=== PATIENT | male | born 1990 | race Hispanic/Latino ===

== ENCOUNTER 2016-07-25 23:50 | Emergency (ER) | payer MEDICAID, OTHER ==
[2016-07-25 23:58] VITALS: BP 153/81; PULSE 99; RESP 17; TEMP 98; O2SAT 100
[2016-07-26] MEDS ORDERED: DiphenhydrAMINE 50 mg/ml Inj IV STA (00:45)
[2016-07-26] MEDS ORDERED: DiphenhydrAMINE 50 mg/ml Inj ONE (00:48)
--- NOTE | 2016-07-26 00:48 | ED PDOC ---
HPI: General Adult Time Seen by Provider: 07/26/16 00:19 Chief Complaint (Nursing): Dental Pain Chief Complaint (Provider): swollen tongue History Per: Patient, Family (cousin) History/Exam Limitations: no limitations Additional History Per: Patient, Family Additional Complaint(s): 25 y/o male no past medical history presents for eval of pain/swelling/redness to tongue x 2 hours. Patient states pain started after using colgate mouthwash. He notes difficulty swallowing due to swelling. Denies difficulty breathing, rash, chest pain, shortness of breath, palpitations. Past Medical History Reviewed: Historical Data, Nursing Documentation, Vital Signs Vital Signs: Last Vital Signs Temp 98 F 07/25/16 23:54 Pulse 99 H 07/25/16 23:54 Resp 17 07/25/16 23:54 BP 153/81 H 07/25/16 23:54 Pulse Ox 100 07/26/16 01:58 - Medical History PMH: No Chronic Diseases - Surgical History Surgical History: No Surg Hx - Family History Family History: States: Unknown Family Hx - Home Medications Home Medications: Ambulatory Orders Medication Instructions Recorded traMADol [Ultram] 50 mg PO Q6 #10 tab 11/25/15 Naproxen [Naprosyn] 500 mg PO Q12 PRN #20 tablet 07/26/16 Prednisone 50 mg PO DAILY #4 tablet 07/26/16 - Allergies Allergies/Adverse Reactions: Allergies Allergy/AdvReac Type Severity Reaction Status Date / Time No Known Allergies Allergy Verified 11/24/15 22:59 Review of Systems ROS Statement: Except As Marked, All Systems Reviewed And Found Negative ENT: Positive for: Mouth Swelling (tongue) Physical Exam - Reviewed Nursing Documentation Reviewed: Yes Vital Signs Reviewed: Yes - Physical Exam Appears: Positive for: Well, Non-toxic, No Acute Distress Head Exam: Positive for: ATRAUMATIC, NORMAL INSPECTION, NORMOCEPHALIC Skin: Positive for: Normal Color Eye Exam: Positive for: Normal appearance ENT: Positive for: Other (erythema, generalized swelling to tongue. Airway patent. Multiple dental caries, upper gum recession) Cardiovascular/Chest: Positive for: Regular Rate, Rhythm Respiratory: Positive for: Normal Breath Sounds Gastrointestinal/Abdominal: Positive for: Normal Exam Back: Positive for: Normal Inspection Neurologic/Psych: Positive for: Alert, Oriented - ECG O2 Sat by Pulse Oximetry: 100 - Progress ED Course And Treament: IV solumedrol IV pepcid IV benadryl On re-eval, patient still complains of symptoms to tongue; TOradol IM given 3:15 Swelling/redness improved. Patient educated on findings, discharged with rx Prednisone, Naproxen. Advised Benadryl PRN. Follow up PMD 2-3 days. Follow up Dentist for tooth decay. Return to ED for worsening/concerning symptoms. Disposition - Clinical Impression Clinical Impression: Glossitis, Dental caries - Patient ED Disposition Is Patient to be Admitted: No Counseled Patient/Family Regarding: Diagnosis, Need For Followup, Rx Given - Disposition Disposition: Routine/Home Disposition Time: 03:22 Condition: IMPROVED Additional Instructions: Follow up with Dentist ELICEO. Use medication as directed. Use Benadryl (over the counter) every 4-6 hours as directed, as needed. Return to ED for worsening/concerning symptoms. Prescriptions: Naproxen [Naprosyn] 500 mg PO Q12 PRN #20 tablet PRN Reason: Pain, Moderate (4-7) Prednisone 50 mg PO DAILY #4 tablet Instructions: Dental Caries (ED)
== END 2016-07-26 03:19 | disposition home or self-care (01) ==
LOC: H.ER 23:50
DX: K14.0 Glossitis (principal); K02.9 Dental caries, unspecified; R13.10 Dysphagia, unspecified

== ENCOUNTER 2017-03-25 10:09 | Emergency (ER) | payer OTHER ==
[2017-03-25 10:15] VITALS: BMI 22.3
[2017-03-25 10:18] VITALS: BP 117/77; RESP 16; TEMP 97.6; O2SAT 100
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
--- NOTE | 2017-03-25 10:56 | RAD ---
PROCEDURE: Radiographs of the left tibia and fibula. HISTORY: swelling, pain COMPARISON: None available. TECHNIQUE: Frontal and lateral views obtained. FINDINGS: BONES: No fracture or destructive lesion. JOINT SPACES: Unremarkable. OTHER FINDINGS: Medial malleolar soft tissue swelling. IMPRESSION: Medial malleolar soft tissue swelling without demonstrated fracture or dislocation.
--- NOTE | 2017-03-25 10:56 | RAD ---
PROCEDURE: Left Ankle Radiographs. HISTORY: swelling, pain COMPARISON: None FINDINGS: BONES: No fracture. JOINTS: Ankle mortise maintained. Talar dome intact SOFT TISSUES: Medial malleolar soft tissue swelling. OTHER FINDINGS: None. IMPRESSION: Medial malleolar soft tissue swelling without demonstrated fracture or dislocation.
--- NOTE | 2017-03-25 10:56 | RAD ---
PROCEDURE: Left Foot Radiographs. HISTORY: swelling, pain COMPARISON: None. FINDINGS: BONES: No fracture. JOINTS: Normal. SOFT TISSUES: Medial malleolar soft tissue swelling. OTHER FINDINGS: None. IMPRESSION: Medial malleolar soft tissue swelling without demonstrated fracture or dislocation.
--- NOTE | 2017-03-25 12:50 | US ---
PROCEDURE: Left lower extremity venous duplex Doppler. HISTORY: L leg swelling COMPARISON: None available. TECHNIQUE: Common femoral, superficial femoral, popliteal and posterior tibial veins were evaluated. Flow was assessed with color Doppler, compressibility, assessment of phasic flow and augmentation response. FINDINGS: COMMON FEMORAL VEIN: Unremarkable. SUPERFICIAL FEMORAL VEIN: Unremarkable. POPLITEAL VEIN: Unremarkable. POSTERIOR TIBIAL VEIN: Unremarkable. OTHER FINDINGS: None. IMPRESSION: No evidence of deep venous thrombosis in the left ower extremity.
[2017-03-25 13:15] VITALS: PULSE 79
== END 2017-03-25 13:08 | disposition home or self-care (01) ==
LOC: H.ER 10:09
DX: L03.116 Cellulitis of left lower limb (principal); R60.0 Localized edema; F32.9 Major depressive disorder, single episode, unspecified; F41.9 Anxiety disorder, unspecified